=== PATIENT | male | born 1975 | race Caucasian/White ===

== ENCOUNTER 2019-04-06 10:49 | Inpatient (IN) | payer OTHER ==
[2019-04-06 11:05] VITALS: BMI 19.5
--- NOTE | 2019-04-06 11:32 | HP ---
COWS - Scale Resting Pulse: 0= [place] 80 or Below Sweatin= Chills/Flushing Restless Observation: 1= Difficult to Sit Still Pupil Size: 1= Pupils >than Normal Bone or Joint Aches: 1= Mild Discomfort Runny Nose/ Eye Tearin= Runny Nose/Eyes GI Upset > 30mins: 1= Stomach Cramp Tremor Observation: 0= None Yawning Observation: 1= 1-2x During Session Anxiety or Irritability: 2=Irritable/Anxious Goose Flesh Skin: 3=Piloerection (appropriate for admission for detox) COWS Score: 13 CIWA Score - Admission Criteria OASAS Guidelines: Admission for Medically Managed Detox: Requires at least one of the followin. CIWA greater than 12 2. Seizures within the past 24 hours 3. Delirium tremens within the past 24 hours 4. Hallucinations within the past 24 hours 5. Acute intervention needed for co occurring medical disorder 6. Acute intervention needed for co occurring psychiatric disorder 7. Severe withdrawal that cannot be handled at a lower level of care (continued vomiting, continued diarrhea, abnormal vital signs) requiring intravenous medication and/or fluids 8. Admitting History and Physical - Admission Chief Complaint: " I want to get cleaned up" History of Present Illness: 43 years old male with opioid dependence. He has been using heroin since he was 28 years old. He has now progressed to fentanyl that is is injecting almost of fentanyl 1 days. His friend last week from fentanyl overdose. He states he has not overdosed. He has no narcan kit. He is using intravenously and goes to needle exchange program every thursday. He is using up to one bundle of fentanyl daily. He denies other substances of use. He was in detox one week ago but did not completed at [facility]. He uses marijuana 2 drags sporadically. He uses cocaine every day for the past two weeks at $20 daily. He no legal pending issues. He is homeless but no in prison system. History Source: Patient Limitations to Obtaining History: No Limitations Admission ROS [facility] Chief Complaint: " I want to be clean." Allergies/Adverse Reactions: Allergies Allergy/AdvReac Type Severity Reaction Status Date / Time No Known Allergies Allergy Verified 04/06/19 11:00 History of Present Illness: 43 years old male with opioid dependence. He has been using heroin since he was 28 years old. He has now progressed to fentanyl that is is injecting almost of fentanyl 1 days. His friend last week from fentanyl overdose. He states he has not overdosed. He has no narcan kit. He is using intravenously and goes to needle exchange program every thursday. He is using up to one bundle of fentanyl daily. He denies other substances of use. He was in detox one week ago but did not completed at [facility]. He uses marijuana 2 drags sporadically. He uses cocaine every day for the past two weeks at $20 daily. He no legal pending issues. He is homeless but no in prison system PSych: None Psurg: None - Ebola screening Have you traveled outside of the country in the last 21 days: No (N) Have you had contact with anyone from an Ebola affected area: No Have you been sick,other than usual withdrawal symptoms: No Do you have a fever: No - Review of Systems Constitutional: Chills, Unintentional Wgt. Loss EENT: reports: No Symptoms Reported Respiratory: reports: Cough (productive green sputum.) Cardiac: reports: No Symptoms Reported GI: reports: No Symptoms Reported : reports: No Symptoms Reported Musculoskeletal: reports: No Symptoms Reported Integumentary: reports: No Symptoms Reported Neuro: reports: No Symptoms reported Endocrine: reports: No Symptoms Reported Hematology: reports: No Symptoms Reported Psychiatric: reports: Anxious Other Systems: Reviewed and Negative Patient History - Patient Medical History Hx Anemia: No Hx Asthma: No Hx Chronic Obstructive Pulmonary Disease (COPD): No Hx Cancer: No Hx Cardiac Disorders: No Hx Congestive Heart Failure: No Hx Hypertension: No Hx Hypercholesterolemia: No Hx Pacemaker: No HX Cerebrovascular Accident: No Hx Seizures: No Hx Dementia: No Hx Diabetes: No Hx Gastrointestinal Disorders: No Hx Liver Disease: No (last tested for HCV 3 years ago) Hx Genitourinary Disorders: No Hx Sexually Transmitted Disorders: No (last tested 6 months ago) Hx Renal Disease (ESRD): No Hx Thyroid Disease: No Hx Human Immunodeficiency Virus (HIV): No (last tested 3 years ago) Hx Hepatitis C: No Hx Depression: No Hx Suicide Attempt: No Hx Bipolar Disorder: No Hx Schizophrenia: No - Patient Surgical History Past Surgical History: No - PPD History Previous Implant?: Yes Documented Results: Negative w/o proof Implanted On Prior R Admission?: No PPD to be Administered?: Yes - Smoking Cessation Smoking history: Current every day smoker Have you smoked in the past 12 months: Yes Aproximately how many cigarettes per day: 5 Hx Chewing Tobacco Use: No Initiated information on smoking cessation: Yes 'Breaking Loose' booklet given: 04/06/19 - Substances abused Other Other (specify): Fentanyl Substance route: Injection Frequency: Daily Amount used: 1 bundle Age of first use: 28 Date of last use: 04/06/19 Admission Physical Exam [facility] - Vital Signs Vital Signs: Vital Signs - 24 hr 04/06/19 10:59 Temperature 97.4 F L Pulse Rate 60 Respiratory 16 Rate Blood Pressure 98/54 L - Physical General Appearance: Yes: Mild Distress HEENTM: Yes: EOMI, Hearing grossly Normal, Normal ENT Inspection, Normocephalic , RODNEY, Pharynx Normal, Tm's normal Respiratory: Yes: Chest Non-Tender, No Respiratory Distress, No Accessory Muscle Use Neck: Yes: No masses,lesions,Nodules Breast: Yes: Within Normal Limits Cardiology: Yes: Regular Rhythm, Regular Rate, S1, S2 Abdominal: Yes: Normal Bowel Sounds, Non Tender, Flat, Soft Genitourinary: Yes: Within Normal Limits Back: Yes: Normal Inspection Musculoskeletal: Yes: full range of Motion, Gait Steady Extremities: Yes: Normal Capillary Refill, Normal Inspection, Normal Range of Motion Neurological: Yes: community specialist II-XII NML intact, Fully Oriented, Alert, Motor Strength 5/5, Normal Mood/Affect Integumentary: Yes: Normal Color, Warm Lymphatic: Yes: Within Normal Limits - Diagnostic (1) Fentanyl use disorder, moderate, in controlled environment, dependence Current Visit: Yes Status: Acute (2) Marijuana abuse Current Visit: Yes Status: Acute (3) Nicotine dependence Current Visit: Yes Status: Acute Cleared for Admission [facility] - Detox or Rehab [facility] Level of Care: Medically Managed Detox Regimen/Protocol: Methadone Screened but not Admitted - Documentation of Visit Screened but not Admitted: No Breathalyzer - Breathalyzer Breathalyzer: 0 Urine Drug Screen - Results Drug screen NEGATIVE: No Urine drug screen results: THC-Marijuana, FEN-Fentanyl, MOP-Opiates, MTD- Methadone Inpatient Rehab Admission - Rehab Decision to Admit Inpatient rehab admission?: No
[2019-04-06] MEDS ORDERED: MELATONIN 5 MG TABLETS PO PRN (11:41)
[2019-04-06] MEDS ORDERED: BISMUTH SUBSALICYLATE 262 MG/15 ML BTL PO PRN (11:41)
[2019-04-06] MEDS ORDERED: IBUPROFEN 400 MG TABLET (FP) PO PRN (11:41)
[2019-04-06] MEDS ORDERED: hydrOXYzine PAMOATE 25 MG CAPSULE (FP) PO PRN (11:41)
[2019-04-06] MEDS ORDERED: ACETAMINOPHEN 325 MG TABLET (FP) PO PRN ×2 (11:41)
[2019-04-06] MEDS ORDERED: METHOCARBAMOL 500 MG TABLET PO PRN (11:41)
[2019-04-06] MEDS ORDERED: cloNIDine HCL 0.1 MG TABLET PO PRN (11:41)
[2019-04-06] MEDS ORDERED: MAGNESIUM HYDROX 2400MG/30ML ORAL SUSPENSION 30 ML CUP PO PRN (11:41)
[2019-04-06] MEDS ORDERED: MAG HYDROX/AL HYDROX/SIMETH 30 ML UNIT-DOSE CUP PO PRN (11:41)
[2019-04-06] MEDS ORDERED: MENTHOL/PHENOL 1 EACH UD MM PRN (11:41)
[2019-04-06] MEDS ORDERED: MAGNESIUM CITRATE 300 ML BOTTLE PO PRN (11:41)
[2019-04-06] MEDS ORDERED: METHADONE HCL 10 MG TABLET (FOR DETOX USE ONLY) PO ONE (12:30)
[2019-04-06] MEDS: NICOTINE 7 MG/24 HOURS TOPICAL PATCH TD SCH (13:14)
[2019-04-06 16:45] LABS: HEMATOCRIT 37.9 % (35.4-49); HEMOGLOBIN 12.7 GM/dL (11.7-16.9); MCH 29.9 pg (25.7-33.7); MCHC 33.4 g/dl (32.0-35.9); MEAN CELL VOLUME 89.5 fl (80-96); MEAN PLT VOLUME 7.3 fl (7.5-11.1); PLATELET COUNT 474 K/MM3 (134-434); RBC 4.24 M/mm3 (4.00-5.60); RDW 13.5 % (11.9-15.9); WHITE BLOOD COUNT 7.7 K/mm3 (4.0-10.0)
[2019-04-06 17:06] LABS: ALBUMIN 3.3 g/dl (3.4-5.0); BILIRUBIN,TOTAL 0.4 mg/dL (0.2-1); CREATININE 0.7 mg/dL (0.55-1.3); POTASSIUM 4.1 mmol/L (3.5-5.1); TOT PROT 7.1 g/dl (6.4-8.2)
[2019-04-06] MEDS ORDERED: THIAMINE HCL 100 MG TABLET (FP) PO SCH (22:00)
[2019-04-07] MEDS ORDERED: METHADONE HCL 10 MG TABLET (FOR DETOX USE ONLY) ONE (09:51)
[2019-04-07] MEDS ORDERED: METHADONE HCL 5 MG TABLET (FOR DETOX USE ONLY) ONE (09:51)
[2019-04-07] MEDS ORDERED: METHADONE (DETOX) 20 MG, METHADONE (DETOX) 5 MG PO ONE (10:00)
[2019-04-07] MEDS ORDERED: PRENATAL VITAMINS W/ FOLIC ACID TABLET (FP) PO SCH (10:00)
[2019-04-07] MEDS: NICOTINE 7 MG/24 HOURS TOPICAL PATCH TD SCH (10:34)
[2019-04-07] MEDS ORDERED: FLU VACCINE QUAD 60 MCG/0.5 ML (MDV 19-20) IM ONE (12:00)
--- NOTE | 2019-04-07 13:27 | PN ---
[facility] COWS - Scale Resting Pulse: 0= [place] 80 or Below Sweatin= Chills/Flushing Restless Observation: 1= Difficult to Sit Still Pupil Size: 1= Pupils >than Normal Bone or Joint Aches: 1= Mild Discomfort Runny Nose/ Eye Tearin= Runny Nose/Eyes GI Upset > 30mins: 2= Nausea/Diarrhea Tremor Observation of Outstretched Hands: 1= Tremor H[place]and, Not Seen Yawning Observation: 2= >3x During Session Anxiety or Irritability: 1=Feels Anxious/Irritable Goose Flesh Skin: 0=Smooth Skin COWS Score: 12 S Progress Note (SOAP) Subjective: c/o of interrupted sleep, body aches, body aches Objective: 04/07/19 13:27 Vital Signs Temperature 98.1 F 04/07/19 09:35 Pulse Rate 78 04/07/19 09:35 Respiratory Rate 16 04/07/19 09:35 Blood Pressure 116/63 04/07/19 09:35 O2 Sat by Pulse Oximetry (%) Laboratory Last Values WBC 7.7 K/mm3 (4.0-10.0) 04/06/19 12:00 RBC 4.24 M/mm3 (4.00-5.60) 04/06/19 12:00 Hgb 12.7 GM/dL (11.7-16.9) 04/06/19 12:00 Hct 37.9 % (35.4-49) 04/06/19 12:00 MCV 89.5 fl (80-96) 04/06/19 12:00 MCH 29.9 pg (25.7-33.7) 04/06/19 12:00 MCHC 33.4 g/dl (32.0-35.9) 04/06/19 12:00 RDW 13.5 % (11.9-15.9) 04/06/19 12:00 Plt Count 474 K/MM3 (134-434) H 04/06/19 12:00 MPV 7.3 fl (7.5-11.1) L 04/06/19 12:00 Sodium 138 mmol/L (136-145) 04/06/19 12:00 Potassium 4.1 mmol/L (3.5-5.1) 04/06/19 12:00 Chloride 102 mmol/L (98-107) 04/06/19 12:00 Carbon Dioxide 29 mmol/L (21-32) 04/06/19 12:00 Anion Gap 7 MMOL/L (8-16) L 04/06/19 12:00 BUN 14.0 mg/dL (7-18) 04/06/19 12:00 Creatinine 0.7 mg/dL (0.55-1.3) 04/06/19 12:00 Est GFR (CKD-EPI)AfAm 133.96 04/06/19 12:00 Est GFR (CKD-EPI)NonAf 115.58 04/06/19 12:00 Random Glucose 89 mg/dL (74-106) 04/06/19 12:00 Calcium 9.0 mg/dL (8.5-10.1) 04/06/19 12:00 Total Bilirubin 0.4 mg/dL (0.2-1) 04/06/19 12:00 AST 14 U/L (15-37) L 04/06/19 12:00 ALT 14 U/L (13-61) 04/06/19 12:00 Alkaline Phosphatase 73 U/L (45-117) 04/06/19 12:00 Total Protein 7.1 g/dl (6.4-8.2) 04/06/19 12:00 Albumin 3.3 g/dl (3.4-5.0) L 04/06/19 12:00 RPR Titer Nonreactive (NONREACTIVE) 04/06/19 12:00 HIV 1&2 Antibody Screen Negative 04/06/19 12:00 HIV P24 Antigen Negative 04/06/19 12:00 repeat CBC Assessment: Aox3 no acute distress no adventitious breath sounds full ROM no gait abnormality + track chavez bilateral forearms, no cellulitis withdrawal sx Plan: increase po fluids MAT reviewed, patient interested in vivitrol once in rehab, benefits and risk discussed Continue detox continue to monitor
[2019-04-07 17:58] VITALS: BP 119/67; PULSE 68; TEMP 98.4
[2019-04-08] MEDS ORDERED: METHADONE HCL 10 MG TABLET (FOR DETOX USE ONLY) PO ONE (10:00)
[2019-04-09] MEDS ORDERED: METHADONE (DETOX) 10 MG, METHADONE (DETOX) 5 MG PO ONE (10:00)
[2019-04-10] MEDS ORDERED: METHADONE HCL 10 MG TABLET (FOR DETOX USE ONLY) PO ONE (10:00)
[2019-04-11] MEDS ORDERED: METHADONE HCL 5 MG TABLET (FOR DETOX USE ONLY) PO ONE (06:00)
== END 2019-04-07 17:30 | disposition left against medical advice (07) | DRG 770 ==
LOC: YASAS 10:49 → Y6N 12:21
PROVIDERS: ADMIT Surgery; ATTEND Surgery
PROC: HZ2ZZZZ Detoxification Services for Substance Abuse Treatment (ICD-10-PCS; principal; 2019-04-06)
DX: F11.23 Opioid dependence with withdrawal (principal); F12.10 Cannabis abuse, uncomplicated; F17.210 Nicotine dependence, cigarettes, uncomplicated; L90.5 Scar conditions and fibrosis of skin
CPT/HCPCS: 36415; 80053; 85027; 86593; 87389